=== PATIENT | female | born 1955 | race Two or more races ===

== ENCOUNTER 2020-08-16 12:23 | Emergency (ER) | payer OTHER ==
[~2020-08-16] VITALS: Ht 172.7 cm; Wt 117.9 kg
[2020-08-16] MEDS ORDERED: MORPHINE SULFATE 4 MG/ML SYR/VIAL ONE (14:44)
[2020-08-16] MEDS ORDERED: ONDANSETRON HCL 4 MG/2 ML VIAL IV ONE ×2 (14:45→19:00)
[2020-08-16] MEDS ORDERED: ONDANSETRON HCL 4 MG/2 ML VIAL ONE (14:45)
[2020-08-16] MEDS ORDERED: MORPHINE SULFATE 4 MG/ML SYR/VIAL IV ONE (14:45)
[2020-08-16 15:11] LABS: Basophils # (auto) 0 10 ^3/uL (0-0.2); Eosinophils # (auto) 0 10 ^3/uL (0-0.8); Lymphocytes # (auto) 0.5 10 ^3/uL (0.4-5.4)
[2020-08-16 15:13] LABS: Basophils % (auto) 0.2 % (0.0-2.0); Hematocrit 36.8 % (36.0-46.0); Hemoglobin 12.2 g/dL (12.2-16.2); Lymphocytes % (auto) 3.7 % (10.0-50.0); Mean Corpuscular Hemoglobin 34.2 pg (28.0-32.0); Mean Corpuscular Hgb Conc. 33.1 g/dL (32.0-36.0); Mean Corpuscular Volume 103.2 fL (80.0-100.0); Monocytes # (auto) 0.8 10 ^3/uL (0-1.3); Monocytes % (auto) 5.8 % (0.0-12.0); Neutrophils % (auto) 90.3 % (37.0-80.0); Platelet Count (auto) 346 10^3/uL (140-450); Red Blood Cells 3.57 10^6/uL (4.0-5.20); Red Cell Distribution Width 14.6 % (11.8-14.3); White Blood Cell 13.3 10^3/uL (4.4-10.8)
[2020-08-16 15:50] LABS: INR 1.83 (0.9-1.15)
[2020-08-16 15:52] LABS: Partial Thromboplastin Time > 139.0 sec (23.0-31.2)
[2020-08-16 15:53] LABS: Urine Bacteria NONE SEEN /hpf (None Seen); Urine Blood Negative /uL (Negative); Urine Specific Gravity 1.019 (1.001-1.035); Urine WBC 2 /hpf (0 - 5)
[2020-08-16 16:15] LABS: Albumin 2.7 g/dL (3.4-5.0); Calcium 8.1 mg/dL (8.5-10.1); Magnesium 2.3 mg/dL (1.6-2.6); Potassium 3.6 mmol/L (3.5-5.1)
[2020-08-16 16:25] LABS: Bilirubin, Total 0.3 mg/dL (0.2-1.0); Total Protein 7.2 g/dL (6.4-8.2)
[2020-08-16 16:27] LABS: BUN/Creatinine Ratio 33.9
[2020-08-16] MEDS ORDERED: MORPHINE SULF INJ 2 MG/ML SYRINGE 1ML IV ONE (19:00)
[2020-08-16] MEDS ORDERED: HYDROmorphone HCL 2 MG/ML VL IV PRN (19:30)
[2020-08-16] MEDS ORDERED: HYDROcodone-ACET 5/325MG TAB PO PRN (19:30)
[2020-08-16] MEDS ORDERED: APIXABAN 5 MG TAB ONE (21:07)
[2020-08-16] MEDS: APIXABAN 5 MG TAB PO SCH (21:15)
[2020-08-16] MEDS ORDERED: PATIENTS OWN MEDICATION (Eliquis 5 MG) PO SCH (22:00)
[2020-08-16] MEDS ORDERED: LISINOPRIL 10 MG TAB PO SCH (22:00)
[2020-08-17] MEDS: ONDANSETRON HCL 4 MG/2 ML VIAL IV PRN ×2 (03:55→11:49)
[2020-08-17] MEDS: APIXABAN 5 MG TAB PO SCH (08:00)
[2020-08-17] MEDS ORDERED: APIXABAN 5 MG TAB PO SCH (10:00)
[2020-08-17 13:43] VITALS: BP 143/71
== END 2020-08-17 14:06 ==
LOC: EDBD 12:23 → ER 12:23
DX: S32.415A Nondisplaced fracture of anterior wall of left acetabulum, initial encounter for closed fracture (principal); M79.89 Other specified soft tissue disorders; Z20.822 Contact with and (suspected) exposure to COVID-19; Z88.2 Allergy status to sulfonamides; W19.XXXA Unspecified fall, initial encounter; Y93.89 Activity, other specified; Y92.89 Other specified places as the place of occurrence of the external cause; Y99.8 Other external cause status
CPT/HCPCS: 36415; 72192; 80053; 81001; 83735; 85025; 85610; 85730; 87426; 93970; 96374; 96375; 96376; 99285; C9803; J1170; J2270; J2405; U0003